=== PATIENT | male | born 2000 | race Caucasian/White ===

== ENCOUNTER 2019-01-09 14:14 | Emergency (ER) | payer OTHER ==
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
[2019-01-09] MEDS ORDERED: predniSONE 20 MG TAB PO ONE (16:43)
[2019-01-09 16:55] VITALS: BP 130/78
== END 2019-01-09 16:53 | disposition home or self-care (01) ==
DX: T70.0XXA Otitic barotrauma, initial encounter (principal); V49.50XA Passenger injured in collision with unspecified motor vehicles in traffic accident, initial encounter; Y92.410 Unspecified street and highway as the place of occurrence of the external cause
CPT/HCPCS: J7512